=== PATIENT | female | born 2005 | race Caucasian/White ===

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

== ENCOUNTER 2024-12-14 15:07 | Inpatient (IN) ==
--- NOTE | 2024-12-14 17:13 | Ultrasound Report ---
Technique: Transabdominal pelvic sonography was performed Findings: A single live intrauterine gestation is seen in cephalic presentation. The placenta is posterior. There is no sign of placenta previa or placental abruption. Amniotic fluid is within normal limits with an JOSIE of 9.8. The heartrate was within normal limits at 144 bpm The biophysical profile score is 6 out of 8, as breathing was not seen Impression: Intrauterine with a BPP of 6 out of 8 Electronically signed by Eddie Nvearez 12-14-2024 5:11 PM
[2024-12-14] MEDS ORDERED: LIDOCAINE 1% LOCAL 20 ML VIAL INFIL PRN (17:58)
[2024-12-14] MEDS ORDERED: OXYTOCIN 30 UNITS/NSS 30 UNITS/500 ML BAG IV PRN (17:58)
[2024-12-14] MEDS: LACTATED RINGER'S 1,000 ML IV PRN (18:40)
[2024-12-14 19:16] LABS: Hematocrit (blood only) 34.8 % (37.0-47.0); Hemoglobin 11.7 g/dl (12.0-16.0); Mean Corpuscular Hemoglobin 29.2 pg (25.0-34.0); Mean Corpuscular Volume 86.8 fL (80.0-100.0); Platelet Count 222 K/uL (130-400); RDW Standard Deviation 42.4 fL (36.4-46.3); Red Blood Count 4.01 M/uL (4.20-5.40); White Blood Count 9.93 K/ul (4.8-10.8)
--- NOTE | 2024-12-14 23:24 | History & Physical Report ---
Date of Service December 14, 2024 Assessment & Plan (1) IUGR (intrauterine growth restriction) affecting care of mother: Plan: Given abnormal testing in the setting of IUGR, would recommend that she move towards delivery. Discussed induction process. Recommend admit to L&D, efm/toco, labs. Will allow to shower and eat, then will start pitocin. Patient agreeable with plan. Admission and Anticipated Discharge Date Admission Date: December 14, 2024 History of Present Illness Chief Complaint: abnormal testing Primary Care Provider: Theresa Haley MD 19yo @ 37 09/03, was at office appointment today and found to have nonreact tammy NST - BPP unable to be performed at office, therefore she was referred to L&D for eval. + movement, no vaginal bleeding, no leaking fluid. Feeling some contractions. At L&D, reactive NST. BPP performed for 11/04. 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 *FOB Negative Depression *on Buspar Vaping Legally blind single eye hepatitis b non immune 10/09/24 H&H 30.3/9.9 recheck H&H in 4 weeks > 11.5/34.6 IUGR - 8%ile 11/13/24, 6% 12/07/24 *Twice weekly NST/DVP@Dx *Weekly doppler@Dx *Growth US Q4wk @Dx *Deliver [id number] IOL 12/18/24 *Deliver 37wks (less than 3rd%) Allergies Allergy/AdvReac Type Severity Reaction Status Date / Time No Known Allergies Allergy Verified 12/14/24 13:11 Home Medications Medication Instructions Recorded Confirmed Type buspirone 10 mg tablet 10 mg PO DAILY 06/07/24 12/14/24 History prenat.vits,cheryl,[id number]-[id number] 1 tab PO DAILY 06/07/24 12/14/24 History ferrous sulfate 325 mg (65 mg 325 mg PO UD 11/15/24 12/14/24 History iron) tablet ondansetron 4 mg disintegrating 4 mg PO Q6H PRN nausea and 11/15/24 12/14/24 Rx tablet vomiting #12 tabs Patient History Medical History (Updated 12/14/24 @ 15:40 by Alice Phelan RN) Legally blind in left eye, as defined in [place] Depression Anxiety Viral syndrome Abdominal pain Intestinal worms Right sided abdominal pain Right ankle injury Pneumonia Diverticula of colon Surgical History S/P endoscopy S/P colonoscopy Family History Mother Lupus Cervical cancer Fibromyalgia Other Clotting disorder Deep vein thrombosis Diabetes Hypertension Kidney disease No pertinent family history in first degree relatives Denies family history of Ovarian cancer Breast cancer Colorectal cancer Uterine cancer Social History Smoking Status: Current every day smoker Tobacco Type: E-cigarettes / Vaping Do You Dip or Chew Tobacco: No; Hx Alcohol Use: No Hx Substance Use: No Preferred Language: Yi Communication Ability: Effective [employer] Required: No Beliefs That Will Affect Care: None marital status: Single marital status details: Charles (23) [phone] Current Living Situation: Parent and Significant Other Current Living Situation Comment: lives with mother and fob, 4cats, 1 dog, mother to change litter current occupational status: employed 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 Feels Safe at Home: Yes Safety Concerns: Feels Safe At This Time Childhood Exposure to Second-Hand Smoke: Yes Assistive Devices: None Review of Systems All systems reviewed & are unremarkable except as noted in HPI & below Physical Exam Physical Exam: Cervix 2/70/-2 Constitutional: WD/WN, vitals as above Respiratory: normal respiratory effort, lungs clear to auscultation no respiratory distress Cardiovascular: Rate/Rhythm: regular rate and regular rhythm Gastrointestinal (Abdomen): Inspection/Auscultation: abdomen normal to inspection Percussion/Palpation: abdomen soft; abdomen nontender Gravid. No s/s chorio or abruption. Skin: no rashes, warm and dry Psychiatric: A+Ox3, euthymic affect Results & Data Vital Signs (Past 12 Hours) Vital Signs Temp Pulse Resp BP 12/14/24 23:22 71 12/14/24 23:22 126/79 12/14/24 19:09 75 12/14/24 19:09 128/89 12/14/24 19:00 75 12/14/24 19:00 128/89 12/14/24 19:00 18 07/18/25 19:00 36.5 C 18 07/18/25 15:39 36.7 C 83 22 125/73 12/14/24 15:12 83 125/73 Coding Level of Care Code None Diagnoses IUGR (intrauterine growth restriction) affecting care of mother O36.5990
[2024-12-15] MEDS: PENICILLIN GK 6 MU in DEXTROSE 5% 250 ML IV ONE (00:56)
[2024-12-15] MEDS: OXYTOCIN 30 UNITS/NSS 30 UNITS/500 ML BAG IV PRN (01:01)
[2024-12-15] MEDS: PENICILLIN GK 3 MU in DEXTROSE 5% 100 ML IV PRN (05:22)
--- NOTE | 2024-12-15 06:03 | Anesthesiology Consultation ---
Date of Service December 15, 2024 Assessment & Plan (1) Encounter for pre-operative examination: Chart Review Chart Review: Acceptable Risk for Labor Epidural History Height/Weight Height: 5 ft Weight: 54.136 kg Allergies Allergy/AdvReac Type Severity Reaction Status Date / Time No Known Allergies Allergy Verified 12/14/24 13:11 Medications Home Medications Medication Instructions Recorded Confirmed Last Taken buspirone 10 mg tablet 10 mg PO DAILY 06/07/24 12/14/24 11/13/24 22:00 prenat.vits,cheryl,[id number] 1 tab PO DAILY 06/07/24 12/14/24 11/13/24 ferrous sulfate 325 mg (65 mg 325 mg PO UD 11/15/24 12/14/24 Unknown iron) tablet ondansetron 4 mg disintegrating 4 mg PO Q6H PRN nausea and 11/15/24 12/14/24 Unknown tablet vomiting #12 tabs Active Medications Generic Name Dose Route Start Last Admin Trade Name Freq PRN Reason Stop Dose Admin Oxytocin 30 units in 500 mls @ 11 mls/hr 12/14/24 17:58 12/15/24 03:45 Pitocin 30 Units/Nss IV 12/16/24 17:57 0.66 units/hr .Q24H PRN 11 mls/hr Labor Induction/Augmentation Titration Protocol 0.66 UNITS/HR Lactated Ringer's 1,000 mls @ 125 mls/hr 12/14/24 17:58 12/15/24 03:29 Lr IV 12/16/24 17:57 125 mls/hr .Q8H PRN Administration L&D Protocol Protocol Penicillin G Potassium 3 mu/ 106 mls @ 100 mls/hr 12/14/24 20:58 12/15/24 05:22 Dextrose IV 12/24/24 20:57 100 mls/hr Q4H PRN Administration GBS(+) Until Delivery Past Medical History Medical History Legally blind in left eye, as defined in [place] Depression Anxiety Viral syndrome Abdominal pain Intestinal worms Right sided abdominal pain Right ankle injury Pneumonia Diverticula of colon Past Family History Family History Mother Lupus Cervical cancer Fibromyalgia Other Clotting disorder Deep vein thrombosis Diabetes Hypertension Kidney disease No pertinent family history in first degree relatives Denies family history of Ovarian cancer Breast cancer Colorectal cancer Uterine cancer Past Surgical History Surgical History S/P endoscopy S/P colonoscopy Social History Smoking Status: Current every day smoker Do You Dip or Chew Tobacco: No Hx Alcohol Use: No Hx Substance Use: No substance use type: marijuana Last Used Substance: Days (ago) Last Used Substance Other:: in process of obtaining med card, last used 1 week ago Physical Exam Vital Signs Last Vital Signs Temp 36.7 C 12/15/24 03:17 Pulse 65 12/15/24 05:08 Resp 18 12/15/24 03:17 BP 132/98 12/15/24 05:08 Testing Laboratory Results 12/14/24 18:52
[2024-12-15] MEDS ORDERED: SODIUM CHLORIDE 0.9% PF INJ 10 ML VIAL EPI PRN (06:23)
[2024-12-15] MEDS ORDERED: ONDANSETRON INJ 2 MG/ML 2 ML VIAL IV PRN (06:23)
[2024-12-15] MEDS ORDERED: ROPIVACAINE 0.5% PF 5 MG/ML 20 ML VIAL EPI PRN (06:23)
[2024-12-15] MEDS ORDERED: fentANYL 2 MCG/ML BUPIVacaine 0.125%-NSS 100ML BAG EPI PRN (06:23)
[2024-12-15] MEDS ORDERED: NALOXONE HCL 1 MG in SODIUM CHLORIDE 0.9% 1,000 ML IV PRN (06:23)
[2024-12-15] MEDS ORDERED: BUPIVACAINE 0.25% PF 30 ML VIAL EPI PRN (06:23)
[2024-12-15] MEDS ORDERED: NALOXONE HCL 0.4 MG/1 ML VIAL/CARP IV PRN (06:23)
[2024-12-15] MEDS ORDERED: LIDOCAINE 2% MPF LOCAL 5 ML VIAL EPI PRN (06:23)
[2024-12-15] MEDS: BUPIVACAINE 0.25% PF 30 ML VIAL ONE (06:24)
[2024-12-15] MEDS: fentANYL 2 MCG/ML BUPIVacaine 0.125%-NSS 100ML BAG ONE (06:25)
[2024-12-15] MEDS: LIDOCAINE 2%/EPINEPHRINE 1:200,000 20 ML PF ONE (06:25)
[2024-12-15] MEDS: SODIUM CHLORIDE 0.9% PF INJ 10 ML VIAL ONE (06:58)
[2024-12-15] MEDS: BUPIVACAINE 0.25% PF 30 ML VIAL EPI STA (06:59)
[2024-12-15] MEDS: LIDOCAINE 2%/EPINEPHRINE 1:200,000 20 ML PF EPI STA (06:59)
[2024-12-15] MEDS: SODIUM CHLORIDE 0.9% PF INJ 10 ML VIAL EPI STA (06:59)
--- NOTE | 2024-12-15 07:57 | Delivery Summary ---
Vaginal Delivery Summary Date of Service December 15, 2024 Vaginal Delivery Summary and 1st Degree LAC Vaginal Delivery Summary: Pre-delivery diagnoses: 19yo @ 37 5/7, IOL for nonreassuring testing in the setting of IUGR Post-delivery diagnoses: same Procedure: spontaneous vaginal delivery Surgeon: Christine Brian DO Complications: none Findings: Viable male . Apgars: 8/9 . Weight pending, please see nursery records Estimated QBL: 125cc Description of delivery: The patient progressed to complete with epidural anesthesia. She then began to push. She spontaneously vaginally delivered a viable from the cephalic presentation. The head delivered in AMANDA position. The anterior shoulder delivered, followed by the posterior shoulder, followed by the body. No nuchal. The baby was placed on mother's abdomen and a spontaneous cry was heard. Delayed cord clamping was employed, and the cord was doubly clamped and cut. Cord blood was obtained. The placenta was delivered spontaneously intact with a 3-vessel cord. The uterus and vagina were swept of clots and debris. IV pitocin was given. The uterus became firm. The cervix, vagina, and perineum were inspected and first degree perineal laceration noted, repaired with 3-0 Vicryl. Excellent hemostasis was observed. The mother and baby are recovering in stable and good condition in the room. Sponge, needle and instrument counts were correct x 2. Christine Brian DO [facility] Vaginal Delivery Charge Vaginal Delivery Codes: 89265 global code for the antepartum, delivery, and post- Delivery Type Details: and 1st Degree LAC
[2024-12-15] MEDS ORDERED: HYDROCORTISONE ACETATE 25 MG SUPP PR PRN (08:48)
[2024-12-15] MEDS ORDERED: DIPHTHER/TETAN/PERTUS Vaccine (Tdap, Adol/Adult) 0.5mL IM ONE (08:48)
[2024-12-15] MEDS ORDERED: OXYTOCIN 30 UNITS/NSS 30 UNITS/500 ML BAG IV PRN (08:48)
--- NOTE | 2024-12-15 09:22 | Anesthesia Procedure Note ---
Date of Service December 15, 2024 Anesthesia Post Epidural Note Vital Signs Vital Signs: Temp Pulse Resp BP Pulse Ox 36.5 C 72 18 126/76 98 12/15/24 05:50 12/15/24 09:15 12/15/24 06:30 12/15/24 09:15 12/15/24 07:36 Notes Mental Status: alert / awake / arousable and participated in evaluation Nausea / Vomiting: adequately controlled Pain: adequately controlled Airway Patency, RR, SpO2: stable & adequate BP & HR: stable & adequate Hydration State: stable & adequate Neuraxial Anesthesia: was administered and sensory block is resolving Anesthetic Complications: no major complications apparent Epidural: Removed without complications and With tip intact
[2024-12-15] MEDS: ACETAMINOPHEN 325 MG TAB PO PRN (11:00)
[2024-12-15] MEDS: BENZOCAINE 20% SPRY 85 APPLN/85 GM CAN EXT PRN (11:00)
[2024-12-15] MEDS: IBUPROFEN 600 MG TAB PO PRN (11:00)
[2024-12-15] MEDS: busPIRone 5 MG TAB PO SCH (11:02)
[2024-12-15 17:45] VITALS: RESP 16
[2024-12-16 06:27] VITALS: TEMP 98.1
[2024-12-16 06:28] VITALS: PULSE 74; O2SAT 98
[2024-12-16 06:34] VITALS: BP 115/76
--- NOTE | 2024-12-16 07:16 | Obstetrical Progress Note ---
Date of Service December 16, 2024 Assessment & Plan (1) IUGR (intrauterine growth restriction) affecting care of mother: (2) exam: Plan Overall doing well. However, given age, first time mother and breast feeding an iugr baby, really would like the patient to stay until tomorrow. Will see how it goes through the day today and how peds is feeling. Routine care. Still has lots of education that needs to be attended to. Day #:: 1 Subjective Ambulation: ambulating normally Voiding: no voiding problems Passing Gas:: Yes Diet Tolerance:: regular diet Lochia:: Small Feeding Type:: breast feeding Overall feeling well and desires d/c. Physical Exam Constitutional WD/WN, vitals as above Respiratory normal respiratory effort, lungs clear to auscultation Cardiovascular RRR, no murmur, no edema Extremities: no calf tenderness and no edema Gastrointestinal (Abdomen) soft , nt, nd, ff/nt two below u Psychiatric A+Ox3, euthymic affect Results & Data Vital Signs (Past 12 Hours) Vital Signs Temp Pulse Resp BP Pulse Ox O2 Del Method 12/16/24 04:00 36.7 C 74 16 115/76 98 Room Air 12/16/24 00:30 36.7 C 74 16 115/81 98 Room Air 12/15/24 21:00 36.7 C 70 16 110/77 97 Room Air
[2024-12-16 08:06] LABS: Hematocrit (blood only) 31.7 % (37.0-47.0); Hemoglobin 10.2 g/dl (12.0-16.0)
[2024-12-16] MEDS: DOCUSATE SODIUM 100 MG CAP PO SCH (09:09)
[2024-12-16] MEDS: PRENATAL VITAMIN 1 TAB PO SCH (09:09)
--- NOTE | 2024-12-16 11:56 | Communication Note ---
Date of Service: December 16, 2024 Patient desires d/c. Nursing notes she is doing very well gerardo with breast feeding. The baby has been cleared for d/c by peds.
== END 2024-12-16 14:04 | disposition home or self-care (01) | DRG 807 ==
LOC: OPB 15:07 → 4S1 15:09 → 4E2 12-15 13:00